=== PATIENT | female | born 1950 | race Caucasian/White ===

== ENCOUNTER 2019-08-05 10:24 | Emergency (ER) | payer MEDICARE ==
[~2019-08-05] VITALS: Ht 157.5 cm; Wt 68.2 kg
[2019-08-05 11:07] VITALS: BP 115/79
== END 2019-08-05 11:39 | disposition home or self-care (01) ==
LOC: ER 10:25
DX: S80.01XA Contusion of right knee, initial encounter (principal); E78.00 Pure hypercholesterolemia, unspecified; I10 Essential (primary) hypertension; F32.9 Major depressive disorder, single episode, unspecified; Z88.1 Allergy status to other antibiotic agents; W18.39XA Other fall on same level, initial encounter; Y93.89 Activity, other specified; Y92.89 Other specified places as the place of occurrence of the external cause; Y99.8 Other external cause status
CPT/HCPCS: 73564; 99284

== ENCOUNTER 2025-04-19 13:04 | Emergency (ER) | payer BC, MEDICARE ==
[~2025-04-19] VITALS: Ht 165.1 cm; Wt 73.0 kg
[2025-04-19 13:09] VITALS: TEMP 97.5
--- NOTE | 2025-04-19 14:11 | Physician Documentation ---
History of Present Illness ~ Chief Complaint: Cough Stated Complaint: COUGH Time Seen by MD: 14:01 Primary Medical Doctor: MICHELLE ZIMMERMAN 74-year-old female that is with 10 days of cold cough and congestion. She states she has never smoked cigarettes however she lives with someone who smokes cigarettes for 30+ years. It has increased shortness of breath and a bad cough. That it is worse when laying down. She denies any nausea vomiting diarrhea Medication Reconciliation Allergies: Coded Allergies: tetracycline (Verified Allergy, Intermediate, 08/05/19) VOMITS Scheduled Azithromycin (Azithromycin), 1 TAB PO UD Prednisone (Prednisone), 1 TAB PO BID Scheduled PRN albuterol inhaler (Pro-Air Inhaler), 2 PUFFS INH Q4HPRN PRN for wheezing Past Medical History Past Medical History: High Cholesterol, Hypertension, Depression Alcohol Use: None Lives In: Home Review of Systems All Other Systems at this time: Reviewed and Negative Physical Exam Vital Signs: Temperature: 97.5, Source: Temporal, Heart Rate: 84, Respiratory Rate: 14, BP: 127/63, Pulse Oximetry: 100, Weight: 73.000 Physical Exam General: Alert, mild to moderate distress Respiratory: With a bandage to her with hyper ressonence Chest: No accessory muscle use. Neurologic: Oriented x4. Psychiatric: Normal mood and affect. Skin: Normal color, warm and dry. No edema, no ecchymosis. Progress Results/Orders Results/Orders Orders - JOSE AMOR NP Svn Treatment (04/19/25 ) Completed Orders - JOSE AMOR NP Methylprednisolone Sod Succ (Solumedrol (04/19/25 14:05) Ipratropium/Albuterol Nebule (Ipratrop/A (04/19/25 14:05) Vital Signs 04/19/25 04/19/25 04/19/25 04/19/25 13:09 14:35 14:35 15:21 Temp 97.5 Pulse 84 77 69 78 Resp 14 20 20 15 B/P (MAP) 127/63 135/79 Pulse Ox 100 98 100 98 O2 Delivery Room Air* Room Air* O2 Flow Rate 0 0 FiO2 N/A N/A Departure Impression: Primary Impression: Acute bronchitis Additional Impression: Acute respiratory infection Condition: Stable Discharge Instructions: Upper Respiratory Infection, Adult Referrals: NO PRIMARY CARE PROVIDER (PCP) Prescriptions albuterol inhaler (Pro-Air Inhaler) 8.5 Gm Inhaler 2 PUFFS INH Q4HPRN PRN for wheezing for 30 Days, #18 GM Prov: JOSE AMOR NP 04/19/25 Azithromycin (Azithromycin) 250 Mg Tablet 1 TAB PO UD for 5 Days, #6 TAB 2 the first day followed by 1 for days 2-5 Prov: JOSE AMOR NP 04/19/25 Prednisone (Prednisone) 10 Mg Tablet 1 TAB PO BID for 5 Days, #10 TAB Prov: JOSE AMOR NP 04/19/25 Education Educated: Patient Educated regarding: diagnosis Signature Scribe Signature: d Attestation: Scribed for Jose Amor Np by Jose Hernandez NP . 04/19/25 22:26 JOSE AMOR NP Apr 19, 2025 14:10
[2025-04-19] MEDS: ipratropium/albuterol 3ml nebule NEB ONE (14:34)
[2025-04-19 14:35] VITALS: PULSE 69; PULSE 77; RESP 20; O2SAT 100; O2SAT 98
[2025-04-19] MEDS ORDERED: ALBU8HFA INH (15:06)
[2025-04-19] MEDS ORDERED: AZIT250T81 PO (15:06)
[2025-04-19] MEDS ORDERED: PRED10TA23 PO (15:06)
[2025-04-19 15:21] VITALS: BP 135/79; PULSE 78; RESP 15; O2SAT 98
== END 2025-04-19 15:25 | disposition home or self-care (01) ==
LOC: ER 13:05
DX: J20.9 Acute bronchitis, unspecified (principal); J22 Unspecified acute lower respiratory infection; E78.00 Pure hypercholesterolemia, unspecified; I10 Essential (primary) hypertension; Z88.1 Allergy status to other antibiotic agents; Z88.8 Allergy status to other drugs, medicaments and biological substances
CPT/HCPCS: 94640; 96372; 99283; J2919; 94760